=== PATIENT | female | born 1995 | race Caucasian/White ===

== ENCOUNTER 2021-01-14 00:35 | Inpatient (IN) | payer OTHER ==
[~2021-01-14] VITALS: Ht 170.2 cm; Wt 120.2 kg
[2021-01-14 01:08] LABS: HEMOGLOBIN 15.8 gm/dl (12.3-15.3); RED BLOOD COUNT 4.89 M/UL (4.00-5.10); WHITE BLOOD COUNT 24.2 K/UL (4.5-11.0)
[2021-01-14 01:21] LABS: BUN/CREATININE RATIO 9 (0-10)
[2021-01-14 05:37] LABS: HEMOGLOBIN 14.5 gm/dl (12.3-15.3); RED BLOOD COUNT 4.55 M/UL (4.00-5.10)
[2021-01-14 05:45] LABS: WHITE BLOOD COUNT 11.1 K/UL (4.5-11.0)
[2021-01-14 09:17] LABS: BUN/CREATININE RATIO 15 (0-10)
[2021-01-14] MEDS ORDERED: VENLAFAXINE HC150 MG PO (16:47)
[2021-01-14] MEDS ORDERED: LEVOCETIRIZINE D5 MG PO (16:48)
[2021-01-14] MEDS ORDERED: MONTELUKAST SOD10 MG PO (16:49)
[2021-01-15 04:36] LABS: HEMOGLOBIN 12.9 gm/dl (12.3-15.3); RED BLOOD COUNT 4.12 M/UL (4.00-5.10); WHITE BLOOD COUNT 13.5 K/UL (4.5-11.0)
[2021-01-15 04:55] LABS: BUN/CREATININE RATIO 16 (0-10)
[2021-01-17 05:41] LABS: RED BLOOD COUNT 3.47 M/UL (4.00-5.10); WHITE BLOOD COUNT 8.5 K/UL (4.5-11.0)
[2021-01-17 05:42] LABS: HEMOGLOBIN 10.9 gm/dl (12.3-15.3)
[2021-01-17 06:00] LABS: BUN/CREATININE RATIO 25 (0-10)
[2021-01-18 02:49] LABS: WHITE BLOOD COUNT 8.5 K/UL (4.5-11.0)
[2021-01-18 02:52] LABS: RED BLOOD COUNT 3.82 M/UL (4.00-5.10)
[2021-01-18 03:14] LABS: BUN/CREATININE RATIO 19 (0-10)
[2021-01-18] MEDS ORDERED: PROTONIX 40 MG40 M1 PO (09:37)
[2021-01-18] MEDS ORDERED: LISINOPRIL10 MG PO (09:37)
[2021-01-18] MEDS ORDERED: LEVOFLOXACIN500 MG PO (09:37)
[2021-01-18] MEDS ORDERED: CARVEDILOL3.125 MG PO (09:37)
[2021-01-18] MEDS ORDERED: ASPIRIN 325MG325 MG PO (09:37)
== END 2021-01-18 12:26 | disposition home or self-care (01) | DRG 917 ==
LOC: ER1 00:35 → MED SURG 4 03:25 → CDU 03:25 → 2 EAST 05:44 → MED SURG 4 01-17 21:30
PROVIDERS: Family Medicine; ADMIT Internal Medicine
PROC: 02HV33Z Insertion of Infusion Device into Superior Vena Cava, Percutaneous Approach (ICD-10-PCS; principal; 2021-01-14)
PROC: 3E033XZ Introduction of Vasopressor into Peripheral Vein, Percutaneous Approach (ICD-10-PCS; 2021-01-14)
PROC: 0BH17EZ Insertion of Endotracheal Airway into Trachea, Via Natural or Artificial Opening (ICD-10-PCS; 2021-01-14)
PROC: 5A1945Z Respiratory Ventilation, 24-96 Consecutive Hours (ICD-10-PCS; 2021-01-14)
DX: T42.4X1A Poisoning by benzodiazepines, accidental (unintentional), initial encounter (principal); A41.9 Sepsis, unspecified organism; R65.21 Severe sepsis with septic shock; J96.01 Acute respiratory failure with hypoxia; J96.02 Acute respiratory failure with hypercapnia; J69.0 Pneumonitis due to inhalation of food and vomit; R57.0 Cardiogenic shock; I50.23 Acute on chronic systolic (congestive) heart failure; I21.A1 Myocardial infarction type 2; G92 Toxic encephalopathy; J18.9 Pneumonia, unspecified organism; E87.2 Acidosis; N17.9 Acute kidney failure, unspecified; Z68.41 Body mass index [BMI] 40.0-44.9, adult; T40.7X1A Poisoning by cannabis (derivatives), accidental (unintentional), initial encounter; T39.011A Poisoning by aspirin, accidental (unintentional), initial encounter; F32.9 Major depressive disorder, single episode, unspecified; F41.9 Anxiety disorder, unspecified; Z20.822 Contact with and (suspected) exposure to COVID-19; T68.XXXA Hypothermia, initial encounter; N18.9 Chronic kidney disease, unspecified; Z88.2 Allergy status to sulfonamides; J30.9 Allergic rhinitis, unspecified; E11.649 Type 2 diabetes mellitus with hypoglycemia without coma; E66.9 Obesity, unspecified
CPT/HCPCS: ECHO; 0240U; 31500; 36415; 36600; 51702; 70450; 71045; 71046; 80048; 80053; 80202; 80307; 81001; 82009; 82550; 82553; 82803; 82962; 83036; 83605; 83735; 83880; 84132; 84439; 84443; 84484; 84703; 85025; 85610; 87040; 87070; 87205; 92526; 92610; 93005; 93306; 94002; 94003; 94760; 96365; 96375; 97161; 99285; C9113; G0480; J1630; J1650; J1940; J2250; J2543; J2704; J2930; J3370; J7030; J7070

== ENCOUNTER 2021-03-19 20:17 | Emergency (ER) | payer OTHER ==
[~2021-03-19 20:17] MED LIST: ASPIRIN 325MG325 MG PO; CARVEDILOL3.125 MG PO; LEVOCETIRIZINE D5 MG PO; LEVOFLOXACIN500 MG PO; LISINOPRIL10 MG PO; MONTELUKAST SOD10 MG PO; PROTONIX 40 MG40 M1 PO; VENLAFAXINE HC150 MG PO
[2021-03-20] MEDS ORDERED: LODINE CAP 300300 MG PO (02:34)
== END 2021-03-20 02:57 | disposition home or self-care (01) ==
LOC: ER1 20:17
DX: S61.412A Laceration without foreign body of left hand, initial encounter (principal); I48.91 Unspecified atrial fibrillation; I25.2 Old myocardial infarction; F17.210 Nicotine dependence, cigarettes, uncomplicated; Z88.2 Allergy status to sulfonamides; Z88.1 Allergy status to other antibiotic agents; W26.9XXA Contact with unspecified sharp object(s), initial encounter
CPT/HCPCS: 73130; 99283

== ENCOUNTER 2021-03-28 21:47 | Emergency (ER) | payer OTHER ==
[~2021-03-28 21:47] MED LIST changes: +LODINE CAP 300300 MG PO
[2021-03-28 22:36] LABS: RED BLOOD COUNT 4.36 M/UL (4.00-5.10); WHITE BLOOD COUNT 10.1 K/UL (4.5-11.0)
[2021-03-28 23:02] LABS: BUN/CREATININE RATIO 14 (0-10)
== END 2021-03-29 00:25 | disposition home or self-care (01) ==
LOC: ER1 21:47
PROVIDERS: Emergency Medicine
DX: R42 Dizziness and giddiness (principal); I10 Essential (primary) hypertension; W19.XXXA Unspecified fall, initial encounter
CPT/HCPCS: 70450; 71045; 72125; 80053; 82550; 82553; 84484; 85025; 93005; 99284

== ENCOUNTER 2021-06-04 10:03 | Emergency (ER) | payer OTHER ==
[2021-06-04 11:04] LABS: HEMOGLOBIN 13.9 gm/dl (12.3-15.3); RED BLOOD COUNT 4.39 M/UL (4.00-5.10); WHITE BLOOD COUNT 8.9 K/UL (4.5-11.0)
[2021-06-04 12:21] LABS: BUN/CREATININE RATIO 11 (0-10)
== END 2021-06-04 16:00 | disposition home or self-care (01) ==
LOC: ER1 10:03
PROVIDERS: Emergency Medicine
DX: R07.89 Other chest pain (principal); R06.02 Shortness of breath; I25.2 Old myocardial infarction; I48.91 Unspecified atrial fibrillation; I50.9 Heart failure, unspecified; F17.210 Nicotine dependence, cigarettes, uncomplicated; Z20.822 Contact with and (suspected) exposure to COVID-19
CPT/HCPCS: 71045; 80053; 82550; 82553; 83874; 83880; 84484; 85025; 93005; 99285; U0002

== ENCOUNTER 2021-10-31 14:10 | Emergency (ER) | payer OTHER ==
[2021-10-31 15:22] LABS: HEMOGLOBIN 13.3 gm/dl (12.3-15.3); RED BLOOD COUNT 4.16 M/UL (4.00-5.10); WHITE BLOOD COUNT 7.9 K/UL (4.5-11.0)
[2021-10-31 15:49] LABS: BUN/CREATININE RATIO 24 (0-10)
== END 2021-10-31 20:25 | disposition home or self-care (01) ==
LOC: ER1 14:10
PROVIDERS: Nurse Practitioner
DX: R07.89 Other chest pain (principal); I48.91 Unspecified atrial fibrillation; I25.2 Old myocardial infarction; I10 Essential (primary) hypertension; F17.210 Nicotine dependence, cigarettes, uncomplicated; Z79.82 Long term (current) use of aspirin; Z79.899 Other long term (current) drug therapy; Z88.1 Allergy status to other antibiotic agents
CPT/HCPCS: 71045; 80048; 81001; 82550; 82553; 83874; 84484; 85025; 93005; 99285

== ENCOUNTER → 2021-12-12 | Outpatient (CLI) | payer OTHER | LOC: HEART 5 11:30 | DX: I51.9 Heart disease, unspecified (principal); I34.0 Nonrheumatic mitral (valve) insufficiency | CPT/HCPCS: 93306 ==

== ENCOUNTER → 2021-12-30 | Outpatient (CLI) | payer OTHER | LOC: HEART 5 11:00 | DX: R07.9 Chest pain, unspecified (principal) ==